=== PATIENT | female | born 1975 ===

== ENCOUNTER → 2018-03-19 21:04 | Outpatient (REF) | payer OTHER, SELFPAY ==
[2018-03-19 21:35] LABS: Basophils Absolute Auto 0 /uL (0-100); Eosinophils Absolute Auto 0 /uL (0-450); Eosinophils Percent Auto 0.9 % (2-4); Hematocrit 43.4 % (36-46); Hemoglobin 14.3 g/dL (12.0-16.0); Lymphocytes Absolute Auto 1500 /uL (1100-4500); Lymphocytes Percent Auto 34.5 % (25-40); Mean Corpuscular Hemoglobin 28.7 PG (26-34); Mean Corpuscular Volume 86.9 fL (80-100); Monocytes Absolute Auto 300 /uL (0-900); Monocytes Percent Auto 7.9 % (3-14); Neutrophils Absolute Auto 2400 /uL (1500-7000); Neutrophils Percent Auto 55.7 % (50-75); Platelet Count 244 X10^3/uL (150-400); Red Blood Cell Count 4.99 X10^6/uL (4.0-5.2); Red Cell Distribution Width 13.2 % (11.6-14.8); White Blood Cell Count 4.2 X10^3/uL (4.5-11.0)
[2018-03-19 21:48] LABS: Add Manual Diff / Slide Review SLIDE REVIEW
[2018-03-19 21:50] LABS: RBC Morphology Normal Morphology
[2018-03-19 22:00] LABS: Free T3, Triiodothyronine Free 3.75 pg/mL (2.77-5.27); Free T4, Direct Thyroxine 1.31 ng/dL (0.78-2.19)
[2018-03-19 22:14] LABS: Thyroid Stimulating Hormone 1.54 uIU/mL (0.47-4.68)
[2018-03-19 22:17] LABS: Ferritin 30.3 ng/mL (6.27-137); HEMOLYSIS < 15 (0-50)
[2018-03-19 22:29] LABS: Alanine Aminotransferase 24 IU/L (9-52); Albumin 4.4 g/dL (3.5-5.0); Albumin Globulin Ratio 1.4 (1.0-2.8); Alkaline Phosphatase 65 U/L (38-126); Aspartate Aminotransferase 21 IU/L (14-36); BUN Creatinine Ratio 23.3 (6-22); Bilirubin Total 1.1 mg/dL (0.2-1.3); Blood Urea Nitrogen 14 mg/dL (7-17); Calcium 9.5 mg/dL (8.4-10.2); Carbon Dioxide 30 mmol/L (22-32); Chloride 100 mmol/L (98-107); Estimated Glomerular Filt Rate > 60.0 mL/min (>60); Globulin 3.2 g/dL (1.7-4.1); Glucose 93 mg/dL (70-100); Potassium 4.5 mmol/L (3.4-5.1); Sodium 138 mmol/L (137-145); Total Protein 7.6 g/dL (6.3-8.2)
[2018-03-22 13:34] LABS: Thyroxine Binding Globulin 19.1 mcg/mL (13.5-30.9)
[2018-03-24 15:07] LABS: Triiodothyronine T3 Reverse 31 ng/dL (8-25)
== END ==
LOC: LAB 21:04
PROVIDERS: Visit Provider Physician Assistant
DX: F50.81 Binge eating disorder (principal); E03.9 Hypothyroidism, unspecified; R63.5 Abnormal weight gain; R53.83 Other fatigue
CPT/HCPCS: 36415; 80053; 82728; 83036; 84439; 84443; 84481; 84482; 85025

== ENCOUNTER → 2018-05-09 22:01 | Outpatient (REF) | payer OTHER, SELFPAY ==
[2018-05-10 01:58] LABS: Free T3, Triiodothyronine Free 3.58 pg/mL (2.77-5.27); Free T4, Direct Thyroxine 1.59 ng/dL (0.78-2.19)
[2018-05-10 02:10] LABS: Thyroid Stimulating Hormone 0.88 uIU/mL (0.47-4.68)
[2018-05-15 17:46] LABS: Thyroxine Binding Globulin 20.1 mcg/mL (13.5-30.9)
== END ==
LOC: LAB 22:01
PROVIDERS: Visit Provider Physician Assistant
DX: E03.9 Hypothyroidism, unspecified (principal)
CPT/HCPCS: 36415; 84439; 84443; 84481; 84482